=== PATIENT | female | born 1960 | race Caucasian/White ===

== ENCOUNTER 2021-08-14 18:23 | Inpatient (IN) | payer MEDICAID, SELFPAY ==
[2021-08-14 18:35] VITALS: BP 123/78; PULSE 72; RESP 18; TEMP 36.4; O2SAT 94; BMI 25.8
[2021-08-14] MEDS: nicotine 2 mg Gum BUCCAL (19:02)
[2021-08-14 20:16] VITALS: RESP 17
[2021-08-15 06:00] VITALS: BP 119/73; PULSE 74; RESP 17; TEMP 36.8; O2SAT 93
[2021-08-15] MEDS: hyDROXYzine 25 mg Capsule 50 MG PO ×3 (06:15→21:42)
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
[2021-08-15] MEDS: multivitamin therapeutic Tablet 1 TAB PO (09:01)
[2021-08-15] MEDS: folic acid 1 mg Tablet PO (09:01)
[2021-08-15] MEDS: thiamine 100 mg Tablet PO (09:01)
[2021-08-15] MEDS: nicotine 21 mg Patch 1 PATCH TRANSDERMA (10:15)
[2021-08-15] MEDS: nicotine 2 mg Gum BUCCAL ×2 (10:16→15:57)
[2021-08-15] MEDS: loperamide 2 mg Capsule PO (10:49)
[2021-08-15 14:00] VITALS: BP 117/83; PULSE 93; RESP 18; TEMP 36.5; O2SAT 96
[2021-08-15] MEDS: LORazepam 2 mg/mL INJ 1 mL IM (15:22)
[2021-08-15] MEDS: haloperidol inj 5 mg/mL INJ 1 mL IM (15:22)
[2021-08-15] MEDS: diphenhydrAMINE 50 mg/mL SDV 1mL IM (15:22)
[2021-08-15] MEDS: trazodone 50 mg Tablet PO (21:43)
--- NOTE | 2021-08-15 21:45 | PC.NURSE ---
PT REQUESTED SLEEP AND ANXIETY MEDS. TRAZODONE 50MG PO FOR SLEEP AND VISTARIL 50MG PO FOR ANXIETY GIVEN.
[2021-08-15 22:00] VITALS: BP 118/82; PULSE 82; RESP 18; TEMP 37.1; O2SAT 95
[2021-08-15] MEDS: OLANZapine 5 mg ODT PO (23:02)
--- NOTE | 2021-08-15 23:05 | PC.NURSE ---
PT STATES STILL HAVING ANXIETY, REQUESTING ADDTIONAL ANXIETY MED. ZYPREXA ZYDIS 5MG SL GIVEN.
[2021-08-16] MEDS: LORazepam 2 mg Tablet PO ×2 (00:52→20:51)
[2021-08-16] MEDS: ondansetron 4 MG Tablet PO (00:52)
--- NOTE | 2021-08-16 00:58 | NUR.SHIFT ---
pt noted to be having dry heaves, clammy skin, tremors felt, and headache with light sensitivity, scoring 10 on her CIWA scale. Ativan 2mg po and zofran 4mg po given.
--- NOTE | 2021-08-16 01:00 | PC.NURSE ---
PT CAME TO DESK CARRYING HER TRASH SACK, ACTIVELY DRY HEAVING. CIWA ASSESSMENT SCORE OF 10 OBTAINED, ATIVAN 2MG PO GIVEN PER CIWA PROTOCOL.
--- NOTE | 2021-08-16 02:00 | PC.NURSE ---
PT RESTING QUIETLY WITH BOTH EYES CLOSED.
[2021-08-16 06:00] VITALS: BP 118/82; PULSE 82; RESP 18; TEMP 37.1; O2SAT 95
[2021-08-16] MEDS: thiamine 100 mg Tablet PO (09:08)
[2021-08-16] MEDS: multivitamin therapeutic Tablet 1 TAB PO (09:08)
[2021-08-16] MEDS: folic acid 1 mg Tablet PO (09:08)
[2021-08-16 13:51] VITALS: BP 138/84; PULSE 82; RESP 18; TEMP 36.7; O2SAT 97
--- NOTE | 2021-08-16 18:15 | P.PN_ITS ---
Subjective NPU Subjective: Interval history: Alejandra presents today reporting that she is feeling a little better. She reports her withdrawal is going better. We once again discussed the possibility of renewing her Klonopin prescription but that we needed to have identification of where she most recently had a prescribed and what dose. She gave a couple names but we could not get confirmation from those entities of any active scripts recently or ever. Contacted [facility] and apparently her foster care case manager had canceled her bed. We are waiting to see if he can get that reinstated. She is a voluntary patient and we discussed the risk benefits and alternatives of the possibility of discharge tomorrow per her request. Mental Status Exam MSE Comments: This is an obese, older, white female, with hospital scrubs on with limited grooming and adequate eye contact. No abnormal movements except for mild psychomotor agitation. Cooperative with exam in no acute distress. Speech was normal rate, decreased volume. Mood described as a little better; affect congruent. Thought process, organized. Thought content: patient denied any suicidal or homicidal ideation, there were no delusions reported or noted, patient denied any auditory or visual hallucinations. Attention, concentration, and memory appear intact but were not formally tested. She is alert and oriented times three. Insight and judgment are fair, impulse control is impaired. Vitals/I&O/Wt Last Vital Signs Temp 98.6 F 08/16/21 20:51 Pulse 105 H 08/16/21 20:51 Resp 20 H 08/16/21 20:51 BP 105/71 08/16/21 20:51 Pulse Ox 96 08/16/21 20:51 A&P Additional A&P Information (1) Alcohol use disorder, severe, dependence: (2) PTSD (post-traumatic stress disorder): (3) Depression: (4) Insomnia: Additional A&P Information This is a 61-year-old, white female, with a long history of post-traumatic stress disorder, alcohol use disorder, severe, depression, and insomnia, who presents reporting that she wants to get back on her medication. RECOMMENDATION AND PLAN: 1. Continue current medication. Still awaiting identification of a history of Klonopin prescription. 2. Encourage individual, group, and milieu therapy. 3. Continue q-15 minute checks for safety. 4. Encourage sober living treatment after discharge at the highest level of care to which he is willing to commit. Involuntary Hold Information 96 Hour Hold: 96 Hour Involuntary Admission: No Attestations NPU Medical Necessity Statement*: Inpatient hospitalization is medically necessary and the clinically appropriate intervention, at this time. We will monitor medications and make changes as indicated. Likely length of stay is 1-2 days. Coding Level of Care Code Acute Assembler Final for Ghazala Adame
[2021-08-16] MEDS: nicotine 2 mg Gum BUCCAL (19:01)
[2021-08-16] MEDS: loperamide 2 mg Capsule PO ×2 (19:01→19:57)
[2021-08-16] MEDS: mirtazapine 15 mg Tablet PO (20:42)
[2021-08-16] MEDS: trazodone 50 mg Tablet PO (20:42)
[2021-08-16] MEDS: hyDROXYzine 25 mg Capsule 50 MG PO (20:42)
[2021-08-16 20:51] VITALS: BP 105/71; PULSE 105; RESP 20; TEMP 37; O2SAT 96
--- NOTE | 2021-08-16 20:51 | PC.NURSE ---
Ciwa score 12 Administered 2mg Ativan PO per protocol, pt was aggitated, c/o of nausea, anxious behavior. will continue to monitor.
--- NOTE | 2021-08-16 21:42 | PC.NURSE ---
Ciwa score 0 Pt now scores a 0 at Ciwa, pt now sleeping quietly in her room.
[2021-08-17] MEDS: nicotine 21 mg Patch 1 PATCH TRANSDERMA (05:36)
[2021-08-17 06:00] VITALS: BP 119/86; PULSE 91; RESP 20; TEMP 36.9; O2SAT 97
[2021-08-17] MEDS: hyDROXYzine 25 mg Capsule 50 MG PO ×3 (07:19→21:12)
--- NOTE | 2021-08-17 07:20 | PC.NURSE ---
PRN administered vistaril 50mg for anxiety about going back to [facility] today
[2021-08-17] MEDS: multivitamin therapeutic Tablet 1 TAB PO (08:44)
[2021-08-17] MEDS: folic acid 1 mg Tablet PO (08:44)
[2021-08-17] MEDS: thiamine 100 mg Tablet PO (08:45)
--- NOTE | 2021-08-17 10:22 | PC.NURSE ---
PRN VISTARIL 50 MG GIVEN PO PER PT C/O STATED ANXIETY. PT HAS BEEN IRRITABLE THIS MORNING, STATED HOW SHE WANTS TO GET THE HELL OUT OF HERE
[2021-08-17 13:25] VITALS: BP 122/78; PULSE 98; RESP 17; TEMP 36.8; O2SAT 95
[2021-08-17] MEDS: OLANZapine 5 mg ODT PO (14:46)
[2021-08-17] MEDS: LORazepam 2 mg/mL INJ 1 mL IM (16:24)
[2021-08-17] MEDS: haloperidol inj 5 mg/mL INJ 1 mL IM (16:24)
--- NOTE | 2021-08-17 16:24 | PC.NURSE ---
Addendum entered by Jeanette Dow, MIAH 08/17/21 17:29: prn meds effective, during 15 minute rounding pt appears to be asleep in bed in room, eyes closed, respirations even et unlabored Original Note: CODE 10/DISRUPTIVE BEHAVIOR/PRN ATIVAN & HALDOL PATIENT UP ON UNIT, UPSET SHE ISN'T GETTING DISCHARGED TODAY. GOT ON THE PHONE WITH HER COUNSELOR FROM [facility], STARTED SCREAMING PROFANITIES ON THE PHONE SUCH WHY THE FUCK DID YOU SAY ALL THAT TO HIM! PT THEN SLAMMED DOWN THE PHONE, WENT INTO HER ROOM, STARTED SCREAMING THAT SHE WANTED TO GO TO [facility]! PT THEN THREW THE DIRTY LINED FROM THE BARREL ON ALL OVER THE FLOOR, WAS TAKING THE LID BARREL & THROWING IT DOWN THE HALLWAY. WENT INTO ROOM #129 AND THREW THE MATTRESS OFF THE BED INTO THE FLOOR. STAFF ATTEMPTED TO REDIRECT PATIENT WITH NO SUCCESS. PT CONTINUES TO BE DISRUPTIVE ON UNIT, THREW A BUNCH OF PAPER TOWELS INTO THE HALLWAY & CONTINUES TO YELL LOUDLY & BE THREATENING TOWARDS STAFF. SECURITY & CODE [address] CALL[address] AT THIS TIME[address] DR[address] ZAZUETA PRESENT & AWARE OF PATIENT BEHAVIOR, TOLD THIS NURSE TO ADMINISTER PRN ATIVAN/HALDOL IM. PATIENT THEN WENT DOWN TO THE DAY ROOM ON NORTH SIDE AND THREW ALL THE DOMINOS INTO THE FLOOR. PATIENT ESCORTED TO ROOM #170 BY SECURITY & NPU STAFF. PATIENT EDUCATED THAT HER BEHAVIOR WAS NOT APPROPRIATE FOR THE UNIT, PT AGREEABLE TO TAKE PRN INJECTION OF ATIVAN 2 MG WITH HALDOL 5 MG. SHOT ADMINISTERED IN LEFT DELTOID. PT TOLERATED INJECTION WELL. PATIENT IS TEARFUL, STATED SHE IS USED TO DOING HEROIN & IS REQUESTING DETOX MEDS FOR SUCH. STAFF WILL CONTINUE TO MONITOR FOR DESIRED MED EFFECTIVENESS.
--- NOTE | 2021-08-17 17:31 | PC.NURSE ---
called [facility] ([phone]) pharmacy to clarify Klonopin script. Pharmacy staff said patient had Klonopin filled in January 2021 with dose instructions to take 1 mg po BID, stopped order date was 01/10/21. info relayed to Dr. Anderson.
--- NOTE | 2021-08-17 17:56 | P.PN_ITS ---
Subjective NPU Subjective: Interval history: Plans for discharge for Alejandra disintegrated against the backdrop of her having made calls to her outpatient treatment team stating that she was not ready to go and I was just opposed against her telling clear lives about what resources she was returning to including that a bed at [facility] had materialized. There was significant concern by her outpatient team for her safety and when this reality was discussed she lost all control and there was a code 10 called secondary to her destroying property throwing up again around the group room including puzzles papers, up ending the linen trashcan and string that all along the hallways. Mental Status Exam MSE Comments: This is an obese, older, white female, with hospital scrubs on with limited grooming and adequate eye contact. No abnormal movements except for mild psychomotor agitation with moments of extreme psychomotor agitation. Cooperative with exam in moderate to severe distress. Speech was increased rate and volume. Mood described as pissed off; affect congruent. Thought process, organized. Thought content: patient denied any suicidal or homicidal ideation, there were no delusions reported or noted, patient denied any auditory or visual hallucinations. Attention and concentration were intact, and memory was unreliable intentionally but were not formally tested. She is alert and o riented times three. Insight and judgment are impaired, impulse control is impaired. Vitals/I&O/Wt Last Vital Signs Temp 98.2 F 08/17/21 13:25 Pulse 98 08/17/21 13:25 Resp 17 08/17/21 22:00 BP 122/78 08/17/21 13:25 Pulse Ox 95 08/17/21 13:25 A&P Additional A&P Information (1) Alcohol use disorder, severe, dependence: (2) PTSD (post-traumatic stress disorder): (3) Depression: (4) Insomnia: Additional A&P Information This is a 61-year-old, white female, with a long history of post-traumatic stress disorder, alcohol use disorder, severe, depression, and insomnia, who presents reporting that she wants to get back on her medication. RECOMMENDATION AND PLAN: 1. Continue current medication. Still awaiting identification of a history of Klonopin prescription. 2. Encourage individual, group, and milieu therapy. 3. Continue q-15 minute checks for safety. 4. Encourage sober living treatment after discharge at the highest level of care to which he is willing to commit. Involuntary Hold Information 96 Hour Hold: 96 Hour Involuntary Admission: No Attestations NPU Medical Necessity Statement*: Inpatient hospitalization is medically necessary and the clinically appropriate intervention, at this time. We will monitor medications and make changes as indicated. Likely length of stay is 1-4 days. Coding Level of Care Code Acute Domestic Laundry Worker for Ghazala Adame
[2021-08-17] MEDS: trazodone 50 mg Tablet PO (21:12)
[2021-08-17] MEDS: nicotine 2 mg Gum BUCCAL (21:12)
[2021-08-17] MEDS: mirtazapine 15 mg Tablet PO (21:12)
[2021-08-17 22:00] VITALS: RESP 17
--- NOTE | 2021-08-17 23:41 | PC.NURSE ---
prn 2112 administerd trazodone 50mg, 50mg vistaril, for anxiety and a sleeping aid. Will continue to monitor.
[2021-08-18 06:00] VITALS: RESP 16
[2021-08-18] MEDS: thiamine 100 mg Tablet PO (09:47)
[2021-08-18] MEDS: folic acid 1 mg Tablet PO (09:48)
[2021-08-18] MEDS: multivitamin therapeutic Tablet 1 TAB PO (09:48)
[2021-08-18] MEDS: nicotine 21 mg Patch 1 PATCH TRANSDERMA (11:20)
[2021-08-18] MEDS: OLANZapine 5 mg ODT PO ×2 (11:49→19:01)
[2021-08-18] MEDS: hyDROXYzine 25 mg Capsule 50 MG PO ×2 (12:28→19:47)
[2021-08-18 14:00] VITALS: BP 122/78; PULSE 98; RESP 16; TEMP 36.8; O2SAT 95
[2021-08-18] MEDS: haloperidol 5 mg Tablet PO (14:34)
--- NOTE | 2021-08-18 16:31 | P.PN_ITS ---
Subjective NPU Subjective: Interval history: Alejandra presents today seeming a bit more under control. She reports that she is feeling better feel like the medication is helping. He did discuss struggling with sleep and we discussed the risk of its alternatives of increasing her trazodone to 100 mg p.o. nightly and she understood agreed proceed as documented in this note. She did request medication to be prescribed in addition to this everything she is asked for thus far has been controlled. She requested Klonopin, temazepam and Subutex. We agreed to start with increasing sleep medication and work on the other things over this weekend. Mental Status Exam MSE Comments: This is an obese, older, white female, with hospital scrubs on with limited grooming and adequate eye contact. No abnormal movements. Cooperative with exam in no acute distress. Speech was more normal rate and volume. Mood described as better; affect congruent. Thought process, organized. Thought content: patient denied any suicidal or homicidal ideation, there were no delusions reported or noted, patient denied any auditory or visual hallucinations. Attention and concentration were intact, and memory was unreliable intentionally but were not formally tested. She is alert and oriented times three. Insight and judgment are improving, impulse control is limited, but improving. Vitals/I&O/Wt Last Vital Signs Temp 98.2 F 08/18/21 14:00 Pulse 98 08/18/21 14:00 Resp 16 08/18/21 14:00 BP 122/78 08/18/21 14:00 Pulse Ox 95 08/18/21 14:00 A&P Additional A&P Information (1) Alcohol use disorder, severe, dependence: (2) PTSD (post-traumatic stress disorder): (3) Depression: (4) Insomnia: This is a 61-year-old, white female, with a long history of post-traumatic stress disorder, alcohol use disorder, severe, depression, and insomnia, who p resents reporting that she wants to get back on her medication. RECOMMENDATION AND PLAN: 1. Continue current medication. Increase trazodone to 150 mg p.o. nightly and consider medication for anxiety. 2. Encourage individual, group, and milieu therapy. 3. Continue q-15 minute checks for safety. 4. Encourage sober living treatment after discharge at the highest level of care to which he is willing to commit. Involuntary Hold Information 96 Hour Hold: 96 Hour Involuntary Admission: No Attestations NPU Medical Necessity Statement*: Inpatient hospitalization is medically necessary and the clinically appropriate intervention, at this time. We will monitor medications and make changes as indicated. Likely length of stay is 1-4 days. Coding Level of Care Code Acute Communications Media Professor for Ghazala Adame
[2021-08-18] MEDS: mirtazapine 15 mg Tablet PO (19:48)
[2021-08-18] MEDS: trazodone 150 mg Tablet PO (19:48)
[2021-08-18 20:21] VITALS: BP 130/86; PULSE 87; RESP 20; TEMP 36.3; O2SAT 94
--- NOTE | 2021-08-18 21:37 | PC.NURSE ---
Patient states she has had a good day. States she is coming down from a drinking high. States she thinks she will be fine now, just going to stay here through the weekend. Was not interesting in speaking further to this nurse. Will continue to monitor.
[2021-08-19 05:58] VITALS: BP 113/78; PULSE 77; RESP 17; TEMP 36.5; O2SAT 96
[2021-08-19] MEDS: thiamine 100 mg Tablet PO (08:12)
[2021-08-19] MEDS: folic acid 1 mg Tablet PO (08:12)
[2021-08-19] MEDS: multivitamin therapeutic Tablet 1 TAB PO (08:12)
--- NOTE | 2021-08-19 10:15 | PM.NPN ---
Subjective NPU Subjective: Interval history: Patient presents reporting that she is feeling better and glad that we had her stay. She slept better with the increase in the Trazodone and continues to hope for some better anxiety control. She had some clear peace when our plan for likely discharge on Saturday was discussed. She denied any new issues. Mental Status Exam MSE Comments: This is an obese, older, white female, with hospital scrubs on with improving grooming and adequate eye contact. No abnormal movements. Cooperative with exam in no acute distress. Speech was more normal rate and volume. Mood described as better; affect congruent. Thought process, organized. Thought content: patient denied any suicidal or homicidal ideation, there were no delusions reported or noted, patient denied any auditory or visual hallucinations. Attention and concentration were intact, and memory was unreliable intentionally but were not formally tested. She is alert and oriented times three. Insight and judgment are improving, impulse control is limited, but improving. Vitals/I&O/Wt Last Vital Signs Temp 97.7 F 08/19/21 05:58 Pulse 77 08/19/21 05:58 Resp 17 08/19/21 05:58 BP 113/78 08/19/21 05:58 Pulse Ox 96 08/19/21 05:58 A&P Additional A&P Information (1) Alcohol use disorder, severe, dependence: (2) PTSD (post-traumatic stress disorder): (3) Depression: (4) Insomnia: This is a 61-year-old, white female, with a long history of post-traumatic stress disorder, alcohol use disorder, severe, depression, and insomnia, who presents reporting that she wants to get back on her medication. RECOMMENDATION AND PLAN: 1. Continue current medication. Increase trazodone to 150 mg p.o. nightly and consider medication for anxiety. 2. Encourage individual, group, and milieu therapy. 3. Continue q-15 minute checks for safety. 4. Encourage sober living treatment after discharge at the highest level of care to which he is willing to commit. Involuntary Hold Information 96 Hour Hold: 96 Hour Involuntary Admission: No Attestations NPU Medical Necessity Statement*: Inpatient hospitalization is medically necessary and the clinically appropriate intervention, at this time. We will monitor medications and make changes as indicated. Likely length of stay is 1-3 days. Coding Level of Care Code Acute Dray Truck Driver for Ghazala Adame
[2021-08-19] MEDS: hyDROXYzine 25 mg Capsule 50 MG PO ×3 (11:59→20:21)
--- NOTE | 2021-08-19 11:59 | PC.NURSE ---
PRN VISTARIL 50 MG GIVEN PO PER PT C/O STATED ANXIETY. PT UP WATCHING TV IN THE DAY ROOM, STATED SHE WOULD TAKE A SHOWER AFTER HER MOVIE WAS OVER
[2021-08-19] MEDS: nicotine 21 mg Patch 1 PATCH TRANSDERMA (13:07)
[2021-08-19 14:00] VITALS: BP 118/81; PULSE 78; RESP 17; TEMP 36.6; O2SAT 95
--- NOTE | 2021-08-19 18:13 | PC.NURSE ---
PRN VISTARIL 50 MG GIVEN PO PER PT C/O STATED ANXIETY. PT VERY SOMATIC WITH HER COMPLAINTS, OFTEN REQUESTING MY ANXIETY MEDS EVEN THOUGHT PATIENT HAS BEEN UP MOST OF THE DAY WATCHING TV IN THE DAY ROOM & EATING SNACKS. WILL CONT TO MONITOR
[2021-08-19] MEDS: mirtazapine 15 mg Tablet PO (20:21)
[2021-08-19] MEDS: trazodone 150 mg Tablet PO (20:21)
[2021-08-19] MEDS: trazodone 50 mg Tablet PO (20:40)
[2021-08-19 22:00] VITALS: BP 112/74; PULSE 84; RESP 17; TEMP 36.9; O2SAT 99
[2021-08-20 05:23] VITALS: BMI 25.8
[2021-08-20 06:00] VITALS: BP 110/62; PULSE 80; RESP 16; TEMP 36.7; O2SAT 99
[2021-08-20] MEDS: thiamine 100 mg Tablet PO (08:39)
[2021-08-20] MEDS: multivitamin therapeutic Tablet 1 TAB PO (08:39)
[2021-08-20] MEDS: folic acid 1 mg Tablet PO (08:39)
[2021-08-20] MEDS: nicotine 21 mg Patch 1 PATCH TRANSDERMA (11:11)
--- NOTE | 2021-08-20 12:07 | PM.NPN ---
Subjective NPU Subjective: Interval history: Patient presents today reporting that she continues to feel better each day. She reports that she is sorry that she responded the way she did try. She reports that she is feeling optimistic about things moving forward. We discussed possible discharge in the morning. She was hopeful that we can get her out earlier to get back to [place] and possibly still talk to someone about inpatient placement. Mental Status Exam MSE Comments: This is an obese, older, white female, with hospital scrubs on with improving grooming and adequate eye contact. No abnormal movements. Cooperative with exam in no acute distress. Speech was more normal rate and volume. Mood described as better; affect congruent. Thought process, organized. Thought content: patient denied any suicidal or homicidal ideation, there were no delusions reported or noted, patient denied any auditory or visual hallucinations. Attention and concentration were intact, and memory was unreliable intentionally but were not formally tested. She is alert and oriented times three. Insight and judgment are improving, impulse control is improving. Vitals/I&O/Wt Last Vital Signs Temp 98.6 F 08/20/21 12:56 Pulse 90 08/20/21 12:56 Resp 17 08/20/21 12:56 BP 109/74 08/20/21 12:56 Pulse Ox 95 08/20/21 12:56 Weight last 48 hrs Weight 74.843 kg A&P Additional A&P Information (1) Alcohol use disorder, severe, dependence: (2) PTSD (post-traumatic stress disorder): (3) Depression: (4) Insomnia: This is a 61-year-old, white female, with a long history of post-traumatic stress disorder, alcohol use disorder, severe, depression, and insomnia, who presents reporting that she wants to get back on her medication. RECOMMENDATION AND PLAN: 1. Continue current medication. Increase trazodone to 150 mg p.o. nightly and consider medication for anxiety. 2. Encourage individual, group, and milieu therapy. 3. Continue q-15 minute checks for safety. 4. Encourage sober living treatment after discharge at the highest level of care to which he is willing to commit. Involuntary Hold Information 96 Hour Hold: 96 Hour Involuntary Admission: No Attestations NPU Medical Necessity Statement*: Inpatient hospitalization is medically necessary and the clinically appropriate intervention, at this time. We will monitor medications and make changes as indicated. Likely length of stay is 1-2 days. Likely discharge in the morning. Coding Level of Care Code Acute Epic Cup[employer] Analyst for Ghazala Adame
[2021-08-20 12:56] VITALS: BP 109/74; PULSE 90; RESP 17; TEMP 37; O2SAT 95
[2021-08-20] MEDS: hyDROXYzine 25 mg Capsule 50 MG PO (17:28)
--- NOTE | 2021-08-20 17:28 | PC.NURSE ---
Addendum entered by Jeanette Dow LPN 08/20/21 18:48: prn med effective no further c/o anxiety Original Note: PRN VISTARIL 50 MG GIVEN PO PER PT C/O STATED ANXIETY. PT HAS BEEN IN DAY ROOM MOST OF THE DAY WATCHING TV. MED SEEKING BEHAVIORS.
[2021-08-20 21:03] VITALS: BP 121/79; PULSE 89; RESP 17; TEMP 37; O2SAT 95
[2021-08-20] MEDS: mirtazapine 15 mg Tablet PO (21:13)
[2021-08-20] MEDS: trazodone 50 mg Tablet PO (21:16)
[2021-08-20] MEDS: trazodone 150 mg Tablet PO (21:17)
--- NOTE | 2021-08-20 21:20 | PC.NURSE ---
pt requested sleep aide, stated i've been getting 200mg trazodone 200mg po given.
--- NOTE | 2021-08-21 00:29 | PC.NURSE ---
pt resting quietly at this time with both eyes closed.
[2021-08-21 06:00] VITALS: BP 133/81; PULSE 80; RESP 15; TEMP 36.7; O2SAT 98
[2021-08-21] MEDS: thiamine 100 mg Tablet PO (08:21)
[2021-08-21] MEDS: folic acid 1 mg Tablet PO (08:21)
[2021-08-21] MEDS: multivitamin therapeutic Tablet 1 TAB PO (08:22)
[2021-08-21] MEDS: naltrexone hcl 50 mg Tablet PO (11:23)
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
[2021-08-21 12:57] VITALS: BP 133/81; PULSE 80; RESP 15; TEMP 36.7; O2SAT 98
== END 2021-08-21 13:31 | disposition home or self-care (01) | DRG 885 ==
PROVIDERS: Admitting Provider Psychiatry & Neurology Psychiatry; Visit Provider Psychiatry & Neurology Psychiatry
DX: F33.2 Major depressive disorder, recurrent severe without psychotic features (principal); R45.851 Suicidal ideations; F17.210 Nicotine dependence, cigarettes, uncomplicated; F10.20 Alcohol dependence, uncomplicated; Z63.4 Disappearance and death of family member; F43.10 Post-traumatic stress disorder, unspecified; G47.00 Insomnia, unspecified
CPT/HCPCS: 96372; 97165; J1200; J1630; J2060; Q0162